=== PATIENT | female | born 1955 | race Caucasian/White ===

== ENCOUNTER 2022-03-13 12:00 | Observation (INO) | payer MEDICARE ==
[~2022-03-13] VITALS: Ht 175.3 cm; Wt 112.3 kg
[2022-03-13 10:46] VITALS: BP 172/89
[2022-03-13 10:55] LABS: BASOPHILS % (AUTO) 0.5 % (0.0-5.0); EOSINOPHILS % (AUTO) 2.3 % (0.0-8.0); HEMATOCRIT 43.4 % (36-48); MEAN CORPUSCULAR HEMOGLOBIN 32.9 pg (27.0-33.0); MEAN CORPUSCULAR HGB CONC 32.7 g/dL (32.0-36.0); MEAN CORPUSCULAR VOLUME 100.5 fL (79-99); NEUTROPHILS % (AUTO) 63.8 % (40.0-77.0); PLATELET COUNT (AUTO) 332 K/uL (130-400); RED BLOOD CELL COUNT(AUTO) 4.32 MIL/uL (4.00-5.50); RED CELL DISTRIBUTION WIDTH 12.8 % (11.0-15.5); WHITE BLOOD COUNT (AUTO) 8.2 K/uL (4.8-10.8)
[2022-03-13 10:57] LABS: APPEARANCE,URINE CLEAR (CLEAR); BILIRUBIN,URINE NEGATIVE (NEGATIVE); COLOR,URINE LIGHT-YELLOW (YELLOW); GLUCOSE, URINE (UA) NEGATIVE (NEGATIVE); KETONES,URINE NEGATIVE (NEGATIVE); LEUKOCYTE ESTERASE ,URINE NEGATIVE Leu/uL (NEGATIVE); NITRATE,URINE NEGATIVE (NEGATIVE); OCCULT BLOOD,URINE NEGATIVE (NEGATIVE); PROTEIN,URINE NEGATIVE (NEGATIVE); UROBILINOGEN,URINE 0.2 mg/dL (0.2-1.0)
[2022-03-13 11:05] LABS: INR 0.93 (0.85-1.15); PROTHROMBIN TIME 9.9 SEC (9.6-11.6)
[2022-03-13 11:06] LABS: PARTIAL THROMBOPLASTIN TIME 28.8 SEC (26.3-35.5)
[2022-03-13 11:20] LABS: ALBUMIN 3.3 g/dL (3.5-5.0); CARBON DIOXIDE 30 mmol/L (21-32); CHLORIDE 103 mmol/L (101-111); CREATININE 1.1 mg/dL (0.5-1.5); GLOMERULAR FILTR. RATE CALC 52 mL/min (>60); GLUCOSE,RANDOM 112 mg/dL (70-105); POTASSIUM 4.3 mmol/L (3.5-5.1); SODIUM SERUM 138 mmol/L (136-145); UREA NITROGEN, BLOOD 14 mg/dL (7-18)
[2022-03-13 11:30] LABS: CRP QUANTITATIVE < 2.00 mg/L (0.00-9.0)
[~2022-03-13 12:00] MED LIST: ACET-2079 PO; ALBUTEROL IH; BUPR-113 PO; CAND16TA28 PO; CETI10TA57 PO; CHOLECALCIFEROL PO; CYAN1000I IM; CYCL-309 PO; FERR-72 PO; HYDR12.54 PO; IPRA3AMP24 IH; METH-812 PO; MIRT45TA83 PO; MONT-39 PO; MULT-1283 PO; ONDA4TAB10 PO; PANT20TA18 PO; POTA8CAP20 PO; PROM25TA7 PO; PROP20TA7 PO; SEMA1PEN3 SQ; VENL-191 PO
[2022-03-16] VITALS (29 sets, daily range): BP systolic 88–148; BP diastolic 36–94
[2022-03-16] MEDS ORDERED: TRANEXAMIC ACID 1000MG/10ML ONE ×2 (04:56→05:26)
[2022-03-16] MEDS ORDERED: ROPIVACAINE 0.5% 5MG/ML 30ML IJ ONE (04:56)
[2022-03-16] MEDS ORDERED: KETOROLAC 30MG VIAL (30MG/ML) ONE (04:56)
[2022-03-16] MEDS: CEFAZOLIN SODIUM 1 GM VIAL IVPB SCH ×2 (06:00→07:25)
[2022-03-16] MEDS ORDERED: LACTATED RINGERS 1000ML 1,000 ML IV ONE (06:12)
[2022-03-16] MEDS ORDERED: MIDAZOLAM HCL 1 MG/ML 2ML VIAL ONE (07:14)
[2022-03-16] MEDS ORDERED: PROPOFOL 10 MG/ML 20ML VIAL IV ONE (07:14)
[2022-03-16] MEDS ORDERED: ROCURONIUM 10MG/1ML SYR 10 MG/ML ML ONE (07:15)
[2022-03-16] MEDS ORDERED: FENTANYL CITRATE PF 50 MCG/1 ML 2ML VIAL ONE ×3 (07:15→11:04)
[2022-03-16] MEDS ORDERED: ONDANSETRON 4MG INJ ONE (07:15)
[2022-03-16] MEDS ORDERED: EPHEDRINE SULFATE 50 MG/ML AMPULE ONE (07:34)
[2022-03-16] MEDS ORDERED: PHENYLEPHRINE HCL 10 MG/ML 1ML VIAL IV ONE (08:45)
[2022-03-16] MEDS ORDERED: GLYCOPYRROLATE 1 MG/5 ML SYRINGE ONE (09:19)
[2022-03-16] MEDS ORDERED: NEOSTIGMINE 5MG/5ML SYR IV ONE (09:19)
[2022-03-16] MEDS ORDERED: POTASSIUM CHLORIDE 10% ELIXIR 20 MEQ/15 ML UDCUP PO PRN (09:30)
[2022-03-16] MEDS ORDERED: LIDOCAINE HCL-MPF 1% 2ML VIAL IV PRN (09:30)
[2022-03-16] MEDS ORDERED: KETOROLAC 15MG/ML VIAL (15MG/ML) IV PRN (09:30)
[2022-03-16] MEDS ORDERED: POTASSIUM CHLORIDE 20MEQ/100ML 100 ML IV PRN (09:30)
[2022-03-16] MEDS ORDERED: FERROUS FUMARATE 324 MG TABLET PO PRN (09:30)
[2022-03-16] MEDS ORDERED: KCL 20 MEQ ERTAB PO PRN (09:30)
[2022-03-16] MEDS ORDERED: DiphenhydrAMINE HCL 50 MG/ML VIAL IVP PRN (09:30)
[2022-03-16] MEDS: DOCUSATE SODIUM 100 MG CAP PO SCH ×2 (09:34→21:46)
[2022-03-16] MEDS ORDERED: MEPERIDINE-PF 25 MG/ML SYG ONE ×3 (09:43→10:55)
[2022-03-16] MEDS: ONDANSETRON 4MG INJ IVP PRN ×4 (09:51→11:54)
[2022-03-16] MEDS: KETOROLAC 15MG/ML VIAL (15MG/ML) IV SCH ×3 (09:56→17:22)
[2022-03-16] MEDS: 0.9%NACL 1000ML 1,000 ML IV SCH ×2 (12:58→22:54)
[2022-03-16] MEDS: HYDROCODONE/ACETAMINOPHEN 5/325 MG TAB PO PRN ×2 (12:58→18:39)
[2022-03-16] MEDS ORDERED: CYANOCOBALAMIN (VITAMIN B-12) 1000 MCG/ML 1ML VIAL IM SCH (13:30)
[2022-03-16] MEDS ORDERED: METHOCARBAMOL 1500 MG PO PRN ×2 (13:30→14:00)
[2022-03-16] MEDS ORDERED: PROMETHAZINE HCL 25 MG TABLET PO PRN (13:30)
[2022-03-16] MEDS ORDERED: IPRATROPIUM/ALBUTEROL SULFATE 3 ML SOLUTION IH PRN (13:30)
[2022-03-16] MEDS ORDERED: ONDANSETRON ODT 4MG TAB PO PRN (13:30)
[2022-03-16] MEDS ORDERED: NON-FORMULARY MEDICATION 1 EACH (Cetirizine HCl 10 MG) PO PRN (13:30)
[2022-03-16] MEDS: PHARMACY COMMUNICATION MISC SCH ×3 (14:00→16:00)
[2022-03-16] MEDS ORDERED: CETIRIZINE HCL 5 MG TABLET PO PRN (14:00)
[2022-03-16] MEDS: CYCLOBENZAPRINE HCL 10 MG TABLET PO SCH ×2 (14:00→21:46)
[2022-03-16] MEDS: GABAPENTIN 100 MG CAPSULE PO SCH ×2 (14:00→21:46)
[2022-03-16] MEDS ORDERED: Albuterol 2 PUFF IH PRN (14:30)
[2022-03-16] MEDS: CEFAZOLIN SODIUM 1 GM VIAL IVP SCH ×2 (15:13→21:51)
[2022-03-16] MEDS: CANDESARTAN 32 MG PO SCH (21:00)
[2022-03-16] MEDS: MIRTAZAPINE PO SCH (21:00)
[2022-03-16] MEDS: POTASSIUM CHLORIDE 8 MEQ PO SCH (21:00)
[2022-03-16] MEDS ORDERED: MIRTAZAPINE PO SCH (21:00)
[2022-03-16] MEDS ORDERED: CANDESARTAN CILEXETIL 32 MG PO SCH (21:00)
[2022-03-16] MEDS ORDERED: NON-FORMULARY MEDICATION 1 EACH (Ferrous Sulfate 325 MG) PO SCH (21:00)
[2022-03-16] MEDS ORDERED: NON-FORMULARY MEDICATION 1 EACH (Potassium Chloride 8 MEQ) PO SCH (21:00)
[2022-03-16] MEDS: MONTELUKAST SODIUM 10 MG TAB PO SCH (21:46)
[2022-03-16] MEDS: BUPROPION HCL 150 MG TABLET.SA PO SCH (21:46)
[2022-03-16] MEDS: FERROUS SULFATE 325 MG TABLET.DR PO SCH (21:46)
[2022-03-16] MEDS: PROPRANOLOL HCL 20 MG TAB PO SCH (21:46)
[2022-03-16] MEDS: TRAMADOL HCL 50 MG TABLET PO PRN (21:47)
[2022-03-17] MEDS: 0.9%NACL 1000ML 1,000 ML IV SCH (03:35)
[2022-03-17] MEDS: HYDROCODONE/ACETAMINOPHEN 5/325 MG TAB PO PRN ×4 (03:36→23:40)
[2022-03-17 04:30] VITALS: BP 115/50
[2022-03-17 06:02] LABS: MEAN CORPUSCULAR HEMOGLOBIN 33.1 pg (27.0-33.0); MEAN CORPUSCULAR HGB CONC 31.8 g/dL (32.0-36.0); MEAN CORPUSCULAR VOLUME 104.1 fL (79-99); RED BLOOD CELL COUNT(AUTO) 3.17 MIL/uL (4.00-5.50); RED CELL DISTRIBUTION WIDTH 12.7 % (11.0-15.5); WHITE BLOOD COUNT (AUTO) 8.1 K/uL (4.8-10.8)
[2022-03-17 06:20] LABS: POTASSIUM 3.8 mmol/L (3.5-5.1)
[2022-03-17] MEDS: TRAMADOL HCL 50 MG TABLET PO PRN ×3 (07:41→20:06)
[2022-03-17] MEDS: GABAPENTIN 100 MG CAPSULE PO SCH ×3 (07:43→20:05)
[2022-03-17 08:00] VITALS: BP 119/63
[2022-03-17] MEDS: POTASSIUM CHLORIDE 8 MEQ PO SCH ×2 (09:00→20:07)
[2022-03-17] MEDS ORDERED: NON-FORMULARY MEDICATION 1 EACH (Pantoprazole Sodium 20 MG) PO SCH (09:00)
[2022-03-17] MEDS ORDERED: NON-FORMULARY MEDICATION 1 EACH (Hydrochlorothiazide 12.5 MG) PO SCH (09:00)
[2022-03-17] MEDS: CHOLECALCIFEROL 5000 UNIT PO SCH (09:00)
[2022-03-17] MEDS: VENLAFAXINE HCL 75 MG TAB PO SCH (09:28)
[2022-03-17] MEDS: ASPIRIN 325MG TAB PO SCH (09:28)
[2022-03-17] MEDS: PANTOPRAZOLE 40 MG TAB DR PO SCH (09:28)
[2022-03-17] MEDS: DOCUSATE SODIUM 100 MG CAP PO SCH ×2 (09:28→20:05)
[2022-03-17] MEDS: POLYETHYLENE GLYCOL 3350 17 GM POWD.PACK PO SCH (09:29)
[2022-03-17] MEDS: BUPROPION HCL 150 MG TABLET.SA PO SCH ×2 (09:29→20:05)
[2022-03-17] MEDS: CALCIUM CARB 500MG PO PRN ×2 (09:29→20:06)
[2022-03-17] MEDS: CYCLOBENZAPRINE HCL 10 MG TABLET PO SCH ×3 (09:29→20:05)
[2022-03-17] MEDS: HYDROCHLOROTHIAZIDE 25 MG TABLET PO SCH (09:29)
[2022-03-17] MEDS: PROPRANOLOL HCL 20 MG TAB PO SCH ×2 (09:29→20:05)
[2022-03-17 11:52] VITALS: BP 83/31
[2022-03-17 15:45] VITALS: BP 104/32
[2022-03-17] MEDS: FERROUS SULFATE 325 MG TABLET.DR PO SCH (20:05)
[2022-03-17] MEDS: MONTELUKAST SODIUM 10 MG TAB PO SCH (20:05)
[2022-03-17] MEDS: CANDESARTAN 32 MG PO SCH (20:07)
[2022-03-17] MEDS: MIRTAZAPINE PO SCH (20:08)
[2022-03-17 20:39] VITALS: BP 93/63
[2022-03-17] MEDS: KETOROLAC 15MG/ML VIAL (15MG/ML) IV PRN (21:58)
[2022-03-17 23:25] VITALS: BP 120/55
[2022-03-18 04:36] VITALS: BP 113/55
[2022-03-18] MEDS: HYDROCODONE/ACETAMINOPHEN 5/325 MG TAB PO PRN ×2 (05:26→14:36)
[2022-03-18 06:11] LABS: HEMATOCRIT 32.4 % (36-48); MEAN CORPUSCULAR HEMOGLOBIN 32.9 pg (27.0-33.0); MEAN CORPUSCULAR HGB CONC 31.8 g/dL (32.0-36.0); MEAN CORPUSCULAR VOLUME 103.5 fL (79-99); RED BLOOD CELL COUNT(AUTO) 3.13 MIL/uL (4.00-5.50); RED CELL DISTRIBUTION WIDTH 12.6 % (11.0-15.5); WHITE BLOOD COUNT (AUTO) 8.7 K/uL (4.8-10.8)
[2022-03-18 06:16] LABS: POTASSIUM 3.8 mmol/L (3.5-5.1)
[2022-03-18 07:40] VITALS: BP 124/41
[2022-03-18] MEDS: VENLAFAXINE HCL 75 MG TAB PO SCH (09:00)
[2022-03-18] MEDS: POTASSIUM CHLORIDE 8 MEQ PO SCH (09:00)
[2022-03-18] MEDS: CHOLECALCIFEROL 5000 UNIT PO SCH (09:00)
[2022-03-18] MEDS: KETOROLAC 15MG/ML VIAL (15MG/ML) IV PRN (09:06)
[2022-03-18] MEDS: ASPIRIN 325MG TAB PO SCH (10:38)
[2022-03-18] MEDS: PANTOPRAZOLE 40 MG TAB DR PO SCH (10:38)
[2022-03-18] MEDS: DOCUSATE SODIUM 100 MG CAP PO SCH ×2 (10:39→10:43)
[2022-03-18] MEDS: HYDROCHLOROTHIAZIDE 25 MG TABLET PO SCH (10:39)
[2022-03-18] MEDS: BUPROPION HCL 150 MG TABLET.SA PO SCH ×2 (10:39→10:43)
[2022-03-18] MEDS: POLYETHYLENE GLYCOL 3350 17 GM POWD.PACK PO SCH (10:41)
[2022-03-18] MEDS: GABAPENTIN 100 MG CAPSULE PO SCH ×2 (10:54→14:37)
[2022-03-18] MEDS ORDERED: ASPI-1026 PO (11:14)
[2022-03-18] MEDS ORDERED: HYDR-4060 PO (11:14)
[2022-03-18] MEDS ORDERED: GABA100C PO (11:14)
[2022-03-18] MEDS ORDERED: DOCU-116 PO (11:14)
[2022-03-18 11:30] VITALS: BP 144/57
[2022-03-18] MEDS: CYCLOBENZAPRINE HCL 10 MG TABLET PO SCH (14:36)
[2022-03-18 16:30] VITALS: BP 131/45
[2022-03-19] MEDS ORDERED: BISACODYL 10 MG SUPP.RECT RC PRN (09:30)
== END 2022-03-18 18:20 | disposition home health service, planned readmission (86) ==
LOC: DAHIP 03-16 05:57 → 3AH 03-16 11:35 → EDSTATUS 03-16 12:00
PROVIDERS: ADMIT Student in an Organized Health Care Education/Training Program; ATTEND Student in an Organized Health Care Education/Training Program
DX: M17.12 Unilateral primary osteoarthritis, left knee (principal); Z20.822 Contact with and (suspected) exposure to COVID-19; M25.562 Pain in left knee; M17.0 Bilateral primary osteoarthritis of knee; D62 Acute posthemorrhagic anemia; I10 Essential (primary) hypertension; E78.00 Pure hypercholesterolemia, unspecified; M19.90 Unspecified osteoarthritis, unspecified site; B05.9 Measles without complication; Z79.899 Other long term (current) drug therapy; Z98.890 Other specified postprocedural states; Z90.49 Acquired absence of other specified parts of digestive tract; Z90.710 Acquired absence of both cervix and uterus
CPT/HCPCS: 82040; 80048 ×3; 85025; 85610; 85730; 87088; 84134; 86140; 87426; 81003; 36415 ×3; 93005; 87641; 27447; 96374; 96376 ×3; 96375; 76942; 64447; 73560; 97161; 97039 ×5; 97530 ×5; 94664; 85027 ×2; 97116 ×4; G0378 ×53; G0379; A4663; J7120 ×2; J3010 ×3; J0690 ×3; J3490 ×4; J2710; J2250; J2704; J2405 ×2; J1885 ×5; J2175 ×3; J2795; J2370; G0168; A4649 ×4; C1776; A6255; A5120; A4215; A4223; A4222; A4221

== ENCOUNTER 2022-11-19 10:10 | Emergency (ER) | payer MEDICARE ==
[~2022-11-19] VITALS: Ht 177.8 cm; Wt 110.7 kg
[~2022-11-19 10:10] MED LIST changes: -ACET-2079 PO; +ASPI-1026 PO; +DOCU-116 PO; +GABA100C PO; +HYDR-4060 PO
[2022-11-19 11:46] LABS: BASOPHILS # (AUTO) 0.04 K/uL (0.00-0.20); BASOPHILS % (AUTO) 0.4 % (0.0-5.0); EOSINOPHILS # (AUTO) 0.12 K/uL (0.00-0.70); EOSINOPHILS % (AUTO) 1.1 % (0.0-8.0); HEMATOCRIT 44.3 % (36-48); IMMATURE GRANULOCYTE ABSOLUTE 0.04 K/uL (0-1); LYMPHOCYTES # (AUTO) 2.4 K/uL (1.0-4.8); LYMPHOCYTES % (AUTO) 21.8 % (21.0-51.0); MEAN CORPUSCULAR HEMOGLOBIN 32.4 pg (27.0-33.0); MEAN CORPUSCULAR HGB CONC 33.4 g/dL (32.0-36.0); MEAN CORPUSCULAR VOLUME 96.9 fL (79-99); MONOCYTES # (AUTO) 0.8 K/uL (0.1-1.0); MONOCYTES % (AUTO) 7.4 % (3.0-13.0); NEUTROPHILS # (AUTO) 7.5 K/uL (1.8-7.7); NEUTROPHILS % (AUTO) 68.9 % (40.0-77.0); PLATELET COUNT (AUTO) 377 K/uL (130-400); RED BLOOD CELL COUNT(AUTO) 4.57 MIL/uL (4.00-5.50); RED CELL DISTRIBUTION WIDTH 12.4 % (11.0-15.5); WHITE BLOOD COUNT (AUTO) 10.8 K/uL (4.8-10.8)
[2022-11-19] MEDS ORDERED: 0.9%NACL 1000ML 1,000 ML IV SCH ×2 (11:50→12:00)
[2022-11-19 14:01] LABS: CREATININE 1.5 mg/dL (0.5-1.5); POTASSIUM 5.1 mmol/L (3.5-5.1)
[2022-11-19 14:06] LABS: ALBUMIN 3.6 g/dL (3.5-5.0); BILIRUBIN,TOTAL 0.6 mg/dL (0.2-1.0); TOTAL PROTEIN, SERUM 6.8 g/dL (6.0-8.3)
[2022-11-19 14:48] LABS: APPEARANCE,URINE CLEAR (CLEAR); BILIRUBIN,URINE NEGATIVE (NEGATIVE); COLOR,URINE LIGHT-YELLOW (YELLOW); GLUCOSE, URINE (UA) NEGATIVE (NEGATIVE); KETONES,URINE NEGATIVE (NEGATIVE); LEUKOCYTE ESTERASE ,URINE NEGATIVE Leu/uL (NEGATIVE); NITRATE,URINE NEGATIVE (NEGATIVE); OCCULT BLOOD,URINE NEGATIVE (NEGATIVE); PH,URINE 5.5 (5.0-8.0); PROTEIN,URINE NEGATIVE (NEGATIVE); UROBILINOGEN,URINE 0.2 mg/dL (0.2-1.0)
[2022-11-19 14:52] LABS: ADD UA MICROSCOPIC YES
[2022-11-19 14:56] LABS: BACTERIA,URINE RARE /HPF (None Seen); MUCUS,URINE RARE LPF (None Seen); OTHER CASTS, URINE 1 /LPF (None Seen); RBC,URINE 0-1 /HPF (0-1); SQUAMOUS EPITHELIAL CELL,UR RARE /HPF (0-2); WBC,URINE 0-1 /HPF (0-1)
[2022-11-19 15:09] VITALS: BP 97/46; PULSE 69; RESP 22; O2SAT 95
== END 2022-11-19 15:11 | disposition home or self-care (01) ==
LOC: EDH 10:10
DX: I95.9 Hypotension, unspecified (principal); I10 Essential (primary) hypertension; F32.A Depression, unspecified; Z79.82 Long term (current) use of aspirin; Z79.899 Other long term (current) drug therapy; Z88.8 Allergy status to other drugs, medicaments and biological substances
CPT/HCPCS: 36415; 80053; 81001; 83880; 84484; 85025; 93005

== ENCOUNTER 2023-02-05 05:55 | Day surgery (SDC) | payer MEDICARE ==
[2023-02-02 12:26] VITALS: BP 146/80; PULSE 61; RESP 18
[2023-02-05] VITALS (15 sets, daily range): BP systolic 119–144; BP diastolic 55–90; PULSE 56–73; RESP 14–17
[~2023-02-05] VITALS: Ht 177.8 cm; Wt 113.8 kg
[~2023-02-05 05:55] MED LIST changes: +ALBU18HF7 IH; -ALBUTEROL IH; -ASPI-1026 PO; +CALCIUM CITRATE PO; +CHOL500051 PO; -CHOLECALCIFEROL PO; +DICL100G60 TP; -DOCU-116 PO; +FLAX100031 PO; -GABA100C PO; +MULT-1367 PO; -ONDA4TAB10 PO; -PROM25TA7 PO; -SEMA1PEN3 SQ; +SEMA2PEN SQ
[2023-02-05] MEDS ORDERED: CEFAZOLIN SODIUM 2 GM VIAL ONE (06:28)
[2023-02-05] MEDS ORDERED: LACTATED RINGERS 1000ML 1,000 ML IV ONE (06:28)
[2023-02-05] MEDS ORDERED: FAMOTIDINE 20MG VIAL IV ONE (07:06)
[2023-02-05] MEDS ORDERED: LIDOCAINE PF 100MG/5ML (2%) SYRINGE 5ML ONE (07:07)
[2023-02-05] MEDS ORDERED: SUCCINYLCHOLINE 200MG/10ML SYR ONE (07:07)
[2023-02-05] MEDS ORDERED: GLYCOPYRROLATE 1 MG/5 ML SYRINGE ONE (07:07)
[2023-02-05] MEDS ORDERED: ROCURONIUM BROMIDE 10MG/1ML 5ML VL ONE (07:08)
[2023-02-05] MEDS ORDERED: FENTANYL CITRATE PF 50 MCG/1 ML 2ML VIAL ONE (07:08)
[2023-02-05] MEDS ORDERED: PROPOFOL 10 MG/ML 20ML VIAL IV ONE (07:08)
[2023-02-05] MEDS ORDERED: ACET-2079 PO ×2 (07:37→10:16)
[2023-02-05] MEDS ORDERED: MIDAZOLAM HCL 1 MG/ML 2ML VIAL ONE (08:06)
[2023-02-05] MEDS ORDERED: EPHEDRINE SULFATE 50 MG/ML AMPULE ONE (08:27)
[2023-02-05] MEDS ORDERED: BUPIVACAINE/PF 0.25% 30ML VIAL IJ ONE (08:29)
[2023-02-05] MEDS ORDERED: ONDANSETRON 4MG INJ ONE (09:50)
[2023-02-05] MEDS ORDERED: NEOSTIGMINE METHYLSULFATE 1MG/ML IV ONE (10:02)
== END 2023-02-05 11:50 | disposition home or self-care (01) ==
LOC: DAH 05:55
PROVIDERS: ATTEND Student in an Organized Health Care Education/Training Program
DX: M24.662 Ankylosis, left knee (principal); M25.862 Other specified joint disorders, left knee; T84.84XA Pain due to internal orthopedic prosthetic devices, implants and grafts, initial encounter; Y83.8 Other surgical procedures as the cause of abnormal reaction of the patient, or of later complication, without mention of misadventure at the time of the procedure; I10 Essential (primary) hypertension; J40 Bronchitis, not specified as acute or chronic; Z82.49 Family history of ischemic heart disease and other diseases of the circulatory system; Z82.61 Family history of arthritis; Z96.652 Presence of left artificial knee joint; Z83.3 Family history of diabetes mellitus; Z88.8 Allergy status to other drugs, medicaments and biological substances; Z95.0 Presence of cardiac pacemaker; Z87.891 Personal history of nicotine dependence; Z79.899 Other long term (current) drug therapy; Z90.49 Acquired absence of other specified parts of digestive tract; Z90.710 Acquired absence of both cervix and uterus
CPT/HCPCS: 29873; A4663; A4649 ×2; J7120; J3490 ×4; J3010; J0330; J0665; J2001; J2250; J2704; J2405; J2710; J0690; A6223; A5120; A4215; A4223; A4222; A4221; A6450